=== PATIENT | female | born 1990 | race Caucasian/White ===

== ENCOUNTER 2017-04-04 11:13 | Emergency (ER) | payer OTHER ==
[2017-04-04] MEDS ORDERED: Famotidine IV* 10 MG/ML 2 ML (20 mg) IV SLOW PU ONE (12:01)
[2017-04-04] MEDS ORDERED: diPHENhydraMINE IV* 50 MG/ML 1 ml VIAL (BENADRYL) IV ONE (12:01)
[2017-04-04] MEDS ORDERED: methylPREDNISolone 125 MG* 2 ML VIAL IV ONE (12:01)
[2017-04-04] MEDS ORDERED: NS 0.9% 1000 ML* 1,000 ML IV ONE (12:01)
--- NOTE | 2017-04-04 14:18 | ED ---
Allergic Reaction/Systemic - HPI Summary HPI Summary: Patient presents to the ED with bilateral eye swelling and erythema x 3 days. She was seen at [facility] x 2 days ago and dx with bug bite and given steroids and benadryl. Yesterday, she returned to [facility] and dx with allergic reaction. Today, she comes to the ED with symptoms not improving with benadryl and prednisone. She denies breathing difficulties, odynophagia, dysphagia, BEAULIEU, hives, or BEAULIEU. She is unaware if she has any allergies. She had a skin allergic reaction many years ago to "stress" but has never endorses eye symptoms. Denies medication changes. She states she may have used a makeup brush which was old and she used it on both eyes. This is the only change to her regimine. Denies eating different foods or different environment. Denies fevers, sweats, chills or weakness. She does not have pain with eye movement or visual disturbances and no pain noted behind the eyes to suggest orbital cellulitis. - History of Current Complaint Chief Complaint: EDAllergicReaction Time Seen by Provider: 04/04/17 11:49 Hx Obtained From: Patient Onset/Duration: Sudden Onset Timing: Constant Severity Initially: Severe Severity Currently: Severe Pain Intensity: 0 Pain Scale Used: 0-10 Numeric Location: Discrete @ - bilateral eyes Character: Swelling, Pruritus, Pain Aggravating Factor(s): Nothing Alleviating Factor(s): Antihistamines - slight improvement Associated Signs And Symptoms: Negative: Abdominal Pain, Cough Wheezing, Diaphoresis, Difficulty Breathing, Hoarseness, Lightheadedness - Related Hx Possible Reaction To: Other: - makeup brush - Allergies/Home Medications Allergies/Adverse Reactions: Allergies Allergy/AdvReac Type Severity Reaction Status Date / Time Cefaclor [From [facility]] Allergy Intermediate Rash Verified 04/04/17 11:23 PMH/Surg Hx/FS Hx/Imm Hx Previously Healthy: Yes - Immunization History Hx Pertussis Vaccination: No Immunizations Up to Date: Unable to Obtain/Confirm Infectious Disease History: No Infectious Disease History: Denies: Traveled Outside the [place] in Last 30 Days - Social History Occupation: Employed Part-time Lives: With Family Alcohol Use: Occasionally Hx Substance Use: No Substance Use Type: Reports: None Hx Tobacco Use: No Smoking Status (MU): Never Smoked Tobacco Review of Systems Constitutional: Negative Negative: Fever, Fatigue Positive: Erythema, Other - swelling. Negative: Photophobia, Blurred Vision Negative: Epistaxis, Dental Pain, Sore Throat, Ear Ache, Nasal Discharge Negative: Palpitations, Chest Pain Negative: Shortness Of Breath, Cough Negative: Arthralgia, Myalgia Negative: Headache All Other Systems Reviewed And Are Negative: Yes Physical Exam Triage Information Reviewed: Yes Vital Signs On Initial Exam: Initial Vitals Temp Pulse Resp BP Pulse Ox 98.9 F 81 17 118/83 99 04/04/17 11:17 04/04/17 11:17 04/04/17 11:17 04/04/17 11:17 04/04/17 11:17 Vital Signs Reviewed: Yes Appearance: Positive: Well-Appearing, Well-Nourished Skin: Positive: Warm, Skin Color Reflects Adequate Perfusion Head/Face: Positive: Normal Head/Face Inspection Eyes: Positive: EOMI, FAVIO, Conjunctiva Clear, Other: - swelling and erythema surrdoungin eyes and eyelids Neck: Positive: Supple, Nontender, No Lymphadenopathy Respiratory/Lung Sounds: Positive: Clear to Auscultation, Breath Sounds Present Cardiovascular: Positive: Normal, RRR, Pulses are Symmetrical in both Upper and Lower Extremities Musculoskeletal: Positive: Normal, Strength/ROM Intact Neurological: Positive: Speech Normal Psychiatric: Positive: Normal AVPU Assessment: Alert Diagnostics - Vital Signs Vital Signs Temp Pulse Resp BP Pulse Ox 04/04/17 11:17 98.9 F 81 17 118/83 99 - Laboratory Result Diagrams: 04/04/17 14:20 04/04/17 14:20 Lab Statement: Any lab studies that have been ordered have been reviewed, and results considered in the medical decision making process. Allergic Reaction Course/Dx - Course Course Of Treatment: Patient is given Solumedrol 125mg IV; Benadryl 50mg IV; Pepcid 40mg IV; 1000mg NS IV Fluids with relief of pruritis but without relief of swelilng and erythema around the eyes. Discussed with patient treatment options beyond the ED. She is encouraged to continue benadryl and steroids with the addition of pepcid. Patient is OK with plan and will follow up with rheumatology for allergy testing. She is also referred to dermatology if symptoms continue. She is noted to have some pityriasis rosea over the chest and abdomen which has been present for 2 weeks and non-pruritic, this was discussed with patient as it will spontaneously resolve without the need for medications. Discussed case with Dr. Vargas who agrees with decision making process. Patient is OK for discharge and has a safe ride home. Pepcid prescribed and sent to rx. She is encouraged cold compresses and ibuprofen in addition to medication. - Diagnoses Differential Diagnosis/HQI/PQRI: Positive: Anaphylaxis, Angioedema, Urticaria Provider Diagnoses: Allergic eye reaction Discharge - Discharge Plan Condition: Stable Disposition: HOME Patient Education Materials: Allergies (ED), Cold Compress or Soak (ED) Referrals: Non Staff,Doctor [Primary Care Provider] - Additional Instructions: Benadryl 25mg tomorrow morning; 50mg before bedtime Pepcid 40mg tomorrow morning and daily until symptoms resolve Prednisone as prescribed until completed Cold compresses over the bilateral eyes several times per day Wash away the eye with soap and water to clean it of any allergens Rest Ibuprofen 600mg three times daily Throw away all eye makeup and do not use eye makeup or contacts for several days If you develop purulent drainage from the eyes, pain with eye movement or pain behind the eyes - return to the ED immediately. Follow up with [facility] on Thursday or Thursday of next week
[2017-04-04 14:43] LABS: Hematocrit 35 % (35-47); Hemoglobin 11.4 g/dl (12.0-16.0); Mean Corpuscular HGB Conc 33 g/dl (31-36); Mean Corpuscular Hemoglobin 28 pg (27-31); Mean Corpuscular Volume 87 fL (80-97); Mean Platelet Volume 9 um3 (7.4-10.4); Red Blood Count 4.05 10^6/ul (4.0-5.4); Red Cell Distribution Width 14 % (10.5-15); White Blood Count 13.8 10^3/ul (3.5-10.8)
[2017-04-04 14:59] LABS: Albumin 3.8 g/dL (3.2-5.2); BUN/Creatinine Ratio 12.9 (8-20); Calcium 8.7 mg/dL (8.6-10.3); EGFR African American 104.8 (>60); EGFR Non-African American 81.5 (>60); Globulin 2.9 g/dL (2-4); Potassium 3.7 mmol/L (3.5-5.0); Total Bilirubin 0.3 mg/dL (0.2-1.0); Total Protein 6.7 g/dL (6.4-8.9)
[2017-04-04 15:19] VITALS: BP 123/69
== END 2017-04-04 15:30 | disposition home or self-care (01) ==
LOC: ED 11:13
DX: T78.40XA Allergy, unspecified, initial encounter (principal); X58.XXXA Exposure to other specified factors, initial encounter; Y92.9 Unspecified place or not applicable
CPT/HCPCS: 36415; 80053; 82550; 82553; 85025; 96360; 96374; 96375; 99282; J1200; J2930